=== PATIENT | male | born 1960 | race Caucasian/White ===

== ENCOUNTER → 2018-04-17 07:30 | Outpatient (CLI) | payer OTHER, SELFPAY ==
[2018-04-17 13:58] LABS: Free T4 (Free Thyroxine) 1.06 ng/dl (0.76-1.46); Thyroid Stimulating Hormone 2.88 uIU/ml (0.358-3.740); Triiodothryronine (T3) Uptake 35 % (31-39)
[2018-04-19 08:26] LABS: Thyroglobulin Level 1.8 IU/mL (0.0-0.9); Thyroid Peroxidase Antibodies 73 IU/mL (0-34)
== END ==
PROVIDERS: Visit Provider Physician Assistant
DX: R94.6 Abnormal results of thyroid function studies (principal)
CPT/HCPCS: 36415; 84439; 84443; 84479; 86376; 86800

== ENCOUNTER 2023-12-18 10:02 | Outpatient (CLI) | payer BC, SELFPAY ==
--- NOTE | 2023-12-18 10:08 | US_ITS ---
FINAL REPORT CLINICAL HISTORY: ABNORMAL THYROID FUNCTION STUDY COMPARISON: None FINDINGS: THYROID ULTRASOUND: The right lobe of the thyroid measures 3.8 x 1.4 x 1.5 cm in size. No focal nodules or masses are seen in the right lobe of the thyroid, although the gland is somewhat heterogeneous in texture. The left lobe of the thyroid measures 4 x 1.7 x 1.3 cm in size. No focal nodules or masses are seen in the left lobe of the thyroid, although the gland is somewhat heterogeneous in texture. The isthmus of the thyroid gland measures 4 mm in thickness. IMPRESSION: Heterogeneous thyroid gland without focal mass or nodule. Reviewed, Interpreted and Dictated by Reed Villarreal MD Transcribed by Sruthi Montes Authenticated and [facility]
== END 2023-12-18 23:59 | disposition home or self-care (01) ==
LOC: RAD 10:03
PROVIDERS: PCP Nurse Practitioner; Visit Provider Nurse Practitioner
DX: R94.6 Abnormal results of thyroid function studies (principal)
CPT/HCPCS: 76536

== ENCOUNTER 2024-12-02 18:30 | Emergency (ER) | payer BC, SELFPAY ==
[2024-12-02] VITALS (7 sets, daily range): BP systolic 134–164; BP diastolic 77–106; PULSE 87–112; RESP 16–24; TEMP 37.2–37.6; O2SAT 90–100; BMI 33.3
[2024-12-02 18:46] LABS: Coronavirus 19, PCR Not Detected (NotDetected); Influenza A, PCR Not Detected (NotDetected); Influenza B, PCR Not Detected (NotDetected)
--- NOTE | 2024-12-02 19:02 | XR_ITS ---
PROCEDURE INFORMATION: Exam: XR Chest Exam date and time: 12/02/2024 8:02 PM Age: 64 years old Clinical indication: Cough and shortness of breath; Additional info: Cough SOA TECHNIQUE: Imaging protocol: Radiologic exam of the chest. Views: 2 views. COMPARISON: No relevant prior studies available. FINDINGS: Lungs: Patchy right mid to lower lung zone opacity. Possible left lower lung zone opacity. Pleural spaces: Unremarkable. No pleural effusion. No pneumothorax. Heart/Mediastinum: Unremarkable. No cardiomegaly. Bones/joints: Unremarkable. IMPRESSION: Right mid to lower lung zone infiltration. Possible left lower lung zone infiltration.
--- NOTE | 2024-12-02 19:03 | ED_ITS ---
Discharge Plan Disposition Patient Disposition: Home, Self-Care Prescriptions Prescriptions: New doxycycline hyclate 100 mg capsule 100 mg PO BID 7 Days Qty: 14 0RF amoxicillin-pot clavulanate 875-125 mg tablet 1 tab PO BID Qty: 14 0RF albuterol sulfate 90 mcg/actuation HFA aerosol inhaler 3 inh inhalation Q3H PRN (Reason: shortness of breath or wheezing) Qty: 8.5 0RF Rx Instructions: until breathing returns to target peak flow/parameters Referrals Follow up/Referrals: Tabitha Peterson APRN [Primary Care Provider] - See instructions Activity Restrictions/Add. Instructions Additional Instructions/Restrictions: At this time it was felt you are safe to be discharged home. If new or worsening symptoms please do not hesitate to return the emergency department. Follow-up with your family doctor later this week to make sure things are headed in the right direction. Take your medications as prescribed and use your inhaler 3 puffs every 3 hours as needed for shortness of breath. If you are using it more than this come back for continued evaluation. Clinical Impressions Clinical Impression: Pneumonia Print Language Print Language: Zambian Discharge ED Provider: Oh Blankenship General Adult HPI General Chief complaint: Upper Respiratory Infection Stated complaint: Difficulty breathing,fever Time Seen by Provider: 12/02/24 18:33 Mode of Arrival: Ambulatory Source of Information: Patient Description of Symptoms (Recalled from ER Triage Doc. by RN): pt has increasing shortness of breath,fever since sunday. History of Present Illness HPI narrative: Patient is 64-year-old male previous smoker not current smoker history of hypertension presents emergency department for evaluation of shortness of breath and cough. Onset was acute, over the last 48 to 72 hours. His abdominal muscles are sore from coughing so much, no chest pain or abdominal pain at rest. No other acute complaints at this time. Related Data Previous Rx's ?Medication ?Instructions ?Recorded albuterol sulfate 90 mcg/actuation 3 inh inhalation Q3H PRN shortness 12/02/24 aerosol inhaler of breath or wheezing #8.5 grams amoxicillin 875 mg-potassium 1 tab PO BID pneumonia #14 tabs 12/02/24 clavulanate 125 mg tablet doxycycline hyclate 100 mg capsule 100 mg PO BID pneumonia 7 days #14 12/02/24 caps Allergies Allergy/AdvReac Type Severity Reaction Status Date / Time No Known Allergies Allergy Verified 12/02/24 18:41 [facility] Disclaimer: The information contained in this section may have been updated after the patient was seen, as this information can be updated by other users. Social History Smoking Status: Former smoker alcohol intake: never current occupational status: other Travel in the last 8 weeks: None ROS Obtained: Yes Systems reviewed as appropriate & no additional complaints except as documented Physical Exam General General appearance: alert and in no apparent distress Head Head exam: atraumatic and normocephalic Eye Eye exam: Present PERRL and EOMI ENT ENT exam: Present mucous membranes moist Neck Neck exam: Present normal inspection Chest Chest inspection: Present normal inspection and symmetric chest wall rise Respiratory Respiratory exam: Present wheezes (Scant wheezes bilateral lower lung matthews); Absent normal lung sounds bilaterally or respiratory distress Cardiovascular Cardiovascular exam: Present normal rhythm and tachycardia Abdominal Exam Abdominal exam: Present soft; Absent tenderness Extremities Exam Extremities exam: Present normal inspection Neurological Exam Neurological exam: Present alert Psychiatric Psychiatric exam: Present normal affect Skin Skin exam: Present warm and dry Medical Decision Making Medical Records Screening: Per USPSTF and CDC recommendations, given the prevalence of disease in our region, it is our hospital?s policy to screen for HIV and viral Hepatitis for all patients aged 18 and over and those with ongoing risk factors. Chip Inquiry Pt receiving controlled substance: No Vital Signs: 12/02/24 18:39 12/02/24 19:00 12/02/24 19:30 Temperature 99.6 F Temperature Source Oral Pulse Rate 100 H 101 H Pulse Rate [Right] 110 H Respiratory Rate 24 Blood Pressure 159/94 H Blood Pressure [Right Arm] 145/95 H Blood Pressure Mean [Right Arm] 111 02 Sat by Pulse Oximetry 94 L 92 L Oxygen Delivery Method Room Air Room Air 12/02/24 19:30 12/02/24 19:30 12/02/24 20:00 Temperature Temperature Source Pulse Rate 94 H 98 H 110 H Pulse Rate [Right] Respiratory Rate 18 Blood Pressure 136/77 134/77 Blood Pressure [Right Arm] Blood Pressure Mean [Right Arm] 02 Sat by Pulse Oximetry 100 92 L Oxygen Delivery Method Room Air Room Air 12/02/24 20:30 12/02/24 21:01 Temperature Temperature Source Pulse Rate 112 H 112 H Pulse Rate [Right] Respiratory Rate 16 24 Blood Pressure 157/96 H 164/106 H Blood Pressure [Right Arm] Blood Pressure Mean [Right Arm] 02 Sat by Pulse Oximetry 91 L 90 L Oxygen Delivery Method Room Air Room Air Lab Data Lab Results 12/02/24 18:41: SARS-CoV-2 (PCR) Not detected, Influenza A Untype (PCR) Not detected, Influenza Type B (PCR) Not detected 12/02/24 19:30: WBC 7.3, RBC 4.41 L, Hgb 13.3 L, Hct 39.0 L, MCV 88.4, MCH 30.2, MCHC 34.1, RDW 14.2, Plt Count 235, MPV 9.3, Neut % (Auto) 83.0 H, Lymph % (Auto) 8.6 L, [place] % (Auto) 7.8, Eos % (Auto) 0.0 L, Baso % (Auto) 0.3, Neut # (Auto) 6.1, Lymph # (Auto) 0.6 L, [place] # (Auto) 0.6, Eos # (Auto) 0.0, Baso # (Auto) 0.0, D-Dimer 0.59 H, Sodium 139, Potassium 3.5, Chloride 99, Carbon Dioxide 30, Anion Gap 13.5, BUN 14, Creatinine 1.20, Estimated Creat Clear 82, Estimated GFR 61, Est GFR ( Amer) 74, Glucose 107 H, Calcium 8.6, Total Bilirubin 0.6, AST 39, ALT 38, Alkaline Phosphatase 66, Troponin I < 0.01, NT-Pro-B Natriuret Pep 22.2, Total Protein 7.8, Albumin 4.3, Globulin 3.5 H, Albumin/Globulin Ratio 1.2 12/02/24 19:30 12/02/24 19:30 Orders (Tests/Meds): ED MEDICATIONS Discontinued Medications Generic Name Dose Route Start Last Admin Trade Name Freq PRN Reason Stop Dose Admin Albuterol/Ipratropium 6 ml 12/02/24 19:02 12/02/24 19:24 Ipratropium/Albuterol 3 Ml Neb IH 12/02/24 19:03 6 ml ONCE ONE Administration Amoxicillin/Clavulanate Potassium 1 each 12/02/24 20:31 12/02/24 20:42 Amoxicillin/Clavulanate Potassium 875/125mg Tablet PO 12/02/24 20:32 1 each ONCE ONE Administration Doxycycline Hyclate 100 mg 12/02/24 20:31 12/02/24 20:42 Doxycycline Hycl 100 Mg Tablet PO 12/02/24 20:32 100 mg ONCE ONE Administration Methylprednisolone Sodium Succinate 125 mg 12/02/24 19:02 12/02/24 19:20 Methylprednisolone Sod Succ 125mg Vial IV 12/02/24 19:03 125 mg ONCE ONE Administration ORDERS Category Date Time Status CXR 2 view (NOT portable) [XR chest 2V] Stat Exams 12/02/24 19:02 Completed BNP [NT Pro Brain Natriuretic Pep.] Stat Lab 12/02/24 19:30 Completed CBC w/Auto Diff [Complete Blood Count Auto Diff] Stat Lab 12/02/24 19:30 Completed CMP [Comprehensive Metabolic Panel] Stat Lab 12/02/24 19:30 Completed D-Dimer Stat Lab 12/02/24 19:30 Completed Rapid PCR Covid and Flu A/B Stat Lab 12/02/24 18:41 Completed Trop I [Troponin I] Stat Lab 12/02/24 19:30 Completed Troponin I Q3H Lab 12/02/24 22:15 Ordered Troponin I Q3H Lab 12/03/24 01:15 Ordered ECG Data Tracing #1: Independently inter by me rate is 107, rhythm is regular, axis is rightward deviated, no ST elevation in anatomical contiguous leads, QTc 406 Medical Decision Narrative: In summary patient is 64-year-old male past medical history described above who presents emergency department for evaluation of shortness of breath and cough. Patient is hemodynamically stable nontoxic-appearing on arrival, afebrile. Differential diagnosis includes pneumonia, viral respiratory infection, pulmonary embolism, among others. Workup will be conducted with hematologic labs chest x-ray, EKG, troponin, D-dimer. Initial inventions include DuoNebs x 2, methylprednisolone. Initial workup reviewed by me, hematologic labs are nonactionable no significant leukocytosis no anemia D-dimer 0.59 pulmonary embolism is excluded per years criteria initial troponin undetectably low and patient does not have chest pain no JOHN or critical electrolyte abnormality. Viral swab negative. Chest x-ray informally interpreted by me and consistent with pneumonia for which double coverage will be conducted with Augmentin and doxycycline. Upon repeat evaluation patient had significant improvement of respiratory symptoms had oxygen saturation that I would expect for someone who has multi pack-year smoking history and no significant respiratory distress. Largely clear to auscultation all lung matthews. Given this patient is appropriate for outpatient management at this time was given metered-dose inhaler prior to discharge will be discharged with a course of doxycycline Augmentin and steroids was given multiple return precautions verbalized understanding. Critical Care Critical Care Time Critical Care Time: No
--- NOTE | 2024-12-02 19:15 | ECG_ITS ---
APPROVED REPORT Exam: Resting ECG HR:107 bpm ECG Measurements Heart Rate [address] 149 P 63 QRSd 94 QRS 106 QT 343 T 52 QTc 406 Conclusion SINUS TACHYCARDIA RIGHT AXIS DEVIATION [QRS AXIS > 100] ABNORMAL ECG UNCONFIRMED REPORT Electronically signed by : HUGH OLIVERA, 12/04/2024 06:26:58
[2024-12-02] MEDS: METHYLPREDNISOLONE SOD SUCC 125MG VIAL 125 MG IV (19:20)
[2024-12-02] MEDS: IPRATROPIUM/ALBUTEROL 3 ML NEB 6 ML IH (19:24)
[2024-12-02 19:40] LABS: Basophils % 0.3 % (0.1-2.0); Hemoglobin 13.3 g/dL (14.1-18.0); Lymphocytes # 0.6 K/mm3 (0.7-4.5); Lymphocytes % 8.6 % (10-50); Mean Corpuscular HGB Conc 34.1 g/dL (31.8-35.4); Mean Corpuscular Hemoglobin 30.2 pg (27.0-31.2); Mean Corpuscular Volume 88.4 fl (80-94); Mean Platelet Volume 9.3 fl (7.4-10.4); Monocytes # 0.6 K/mm3 (0.1-1.0); Monocytes % 7.8 % (1.7-9.3); Neutrophils # 6.1 K/mm3 (1.8-7.8); Platelet Count 235 K/mm3 (142-424); Red Blood Count 4.41 M/mm3 (4.60-6.20); Red Cell Distribution Width 14.2 % (11.5-17.5); White Blood Count 7.3 K/mm3 (4.8-10.8)
[2024-12-02 19:54] LABS: Alanine Aminotransferase 38 U/L (12-78); Albumin Level 4.3 g/dl (3.5-5.0); Albumin/Globulin Ratio 1.2 (1.1-1.8); Alkaline Phosphatase 66 U/L (38-126); Aspartate Amino Transferase 39 U/L (17-59); Bilirubin,Total 0.6 mg/dl (0.2-1.3); Blood Urea Nitrogen 14 mg/dl (9-20); Calcium 8.6 mg/dl (8.4-10.2); Carbon Dioxide 30 mmol/L (22.0-30.0); Chloride 99 mmol/L (98-107); Creatinine Clearance Estimated 82 mL/min (50-200); Estimated Glomerular Filt Rate 61 ml/min (>60); GFR (African American) 74 ML/MIN (>60); Globulin 3.5 g/dL (1.3-3.2); Glucose 107 mg/dl (74-100); Potassium 3.5 mmoL/L (3.5-5.1); Total Protein,Serum 7.8 g/dl (6.3-8.2)
[2024-12-02 19:58] LABS: D-Dimer 0.59 ug/mL (0.0-0.5)
[2024-12-02 20:04] LABS: NT Pro Brain Natriuretic Pep. 22.2 pg/mL (0-125)
[2024-12-02 20:07] LABS: Anion Gap 13.5 mEq/L (5-15); Sodium 139 mmol/L (136-145)
[2024-12-02 20:08] LABS: Troponin I < 0.01 ng/ml (0.00-0.034)
[2024-12-02] MEDS: DOXYCYCLINE HYCL 100 MG TABLET PO (20:42)
[2024-12-02] MEDS: AMOXICILLIN/CLAVULANATE POTASSIUM 875/125MG TABLET 1 EACH PO (20:42)
[2024-12-02] MEDS: AEROCHAMBER/OPTIHALER 1 UNIT MC (22:07)
[2024-12-02] MEDS: ALBUTEROL-HFA 90MCG/PUFF INHALER 8GM 3 PUFF IH (22:07)
--- OUTSIDE RECORDS SUMMARY | 2024-12-04 21:40 | XMS_ITS | Data Portability ---
Author Organization [facility] KHADIJAH Reis ROMANCE CLOSED Address [address] [place] [address] Assessment No assessment recorded. Plan of Treatment Reminders Order Date Submit Date Provider Last Modified By Organization Details Last Modified Time Details Appointments RECHECK 2024 08:00A Chloe VALDIVIA MD Not available Not available Not available Lab TSH, serum or plasma 2023 024 [facility], [address] [place] [address], [phone], 03/03/2024 09:28:28 T4, free, serum 2023 024 [facility], [address] [place] [address], [phone], 03/03/2024 09:28:25 thyroid peroxidas e (tpo) Ab, serum 2023 024 [facility], [address] [place] [address], [phone], 02/01/2024 17:08:34 Referral None recorded. Procedures None recorded. Surgeries None recorded. Imaging None recorded. Medication Orders levothyro xine 75 mcg tablet [address] [id number], [address] [place], [id number], 01/31/2024 09:53:42 Patient TargetsNo targets recorded. Patient InstructionsNo instructions recorded. Reason for Referral None Reported. Results Created Date Observation Date Name Description Value Unit Range Abnormal Flag Note LastModifiedBy Organization Detail LastModifiedTime 01/31/20 24 02/01/2024 THYRO ID PEROX IDASE AB thyroid peroxidase Ab 310 IU/mL <9 high Not Available [facility] [address] [place] [address], [phone], 02/01/2024 17:08:34 03/03/20 24 03/03/2024 T4,FR EE T4,free 1.44 NG/dL 0.93-1 .70 normal Not Available [facility] [address] [place], [phone], 03/03/2024 09:28:25 03/03/20 24 03/03/2024 TSH TSH 3.770 u[IU] /mL 0.270- 4.200 normal Not Available [facility] [address] [place], [phone], 03/03/2024 09:28:28 Result Notes None recorded. Medical Equipment None Reported. Allergies No known drug allergies Medications Name Sig Start Date Stop Date Status Note LastModified by Organization Details LastModified Time fluoxetine 40 mg capsule Take 1 capsule every day by oral route. active Not Available Not Available No t Available trazodone 50 mg tablet Take 1 tablet every day by oral route. active Not Available Not Available No t Available amlodipine 5 mg tablet Take 1 tablet every day by oral route. active Not Available Not Available No t Available levothyroxin e 75 mcg tablet Take 1 tablet every day by oral route in the morning for 90 days. 2023 active Not Available Not Available Not Avai lable montelukast 10 mg tablet Take 1 tablet every day by oral route. active Not Available Not Available No t Available azelastine 137 mcg (0.1 %) nasal spray [place] 2 sprays twice a day by intranasal route. active Not Available Not Available No t Available buspirone 15 mg tablet Take 1 tablet twice a day by oral route. active Not Available Not Available No t Available Xyzal 5 mg tablet Take 1 tablet every day by oral route. active Not Available Not Available No t Available Vitals Date Recorded Body weight Body mass index (BMI) Body height Heart rate Systolic blood pressure Diastolic blood pressure Provider Name and Address Organization Details Last Updated DateTime 4 58603.4 g 30.5 kg/m2 165.1 cm 80 /min 124 mm[Hg] 78 mm[Hg] [facility] 4 08:49:54 Date Recorded Body height Body mass index (BMI) Body weight Heart rate Systolic blood pressure Diastolic blood pressure Provider Name and Address Organization Details Last Updated DateTime 4 165.1 cm 33.8 kg/m2 82785.2 5 g 74 /min 122 mm[Hg] 72 mm[Hg] [facility] 4 07:54:44 Social History None recorded. Functional Status None recorded. Mental Status None recorded. Family History Nothing Reported. Medical History No medical history recorded. Past Encounters Encounter ID Performer Location Encounter Start Date Encounter Closed Date Diagnosis/Indication Diagnosis SNOMED-CT Code Diagnosis ICD10 Code Diagnosis Note [id number] AURELIO VALDIVIA MD [facility] [address] [place] [address] 01/31/2024 08:13:45 01/31/2024 10:17:27 Subclinical hypothyroidism 38609913 E02 New consultati on thyroid evaluation Symptoms consistent with hypothyroi dism Thyroid ultrasound on 12/18/2023 showed heterogene ous thyroid gland without focal masses.TSH of 7.57 and free T4 of 1.0 on 10/23/2023T SH of 12.47 and free T4 of 1.0 on 07/24/2023 Bedside ultrasound showed enlarged heterogene ous thyroid parenchyma without any distinct nodularity The above is consistent with subclinica l hypothyroi dism. We had a discussion about hypothyroi dism pathophysi ology i.e. Seth thyroiditi s, manifestat ions, diagnostic workup thyroid hormone replacemen t therapy benefits and side effects. Seth thyroiditis 21 [id number] E06.3 Recommenda tions: Start levothyrox ine 75 mcg every a.m. Patient was instructed on the appropriat e method of levothyrox in administra tion to be taken every a.m. on an empty stomach as new food, drinks or other medication s for at least 30 minutes. PPI and calcium -containin g preparatio ns is preferred to be given at least of her hours before or after levothyrox in therapy. TPO antibody today TSH and free T4 for next visit after 6 to 8 weeks Patient verbalized understand ing and agreed with the above mentioned plan of care. I would like to thank Tabitha Peterson APRN for the opportunit y to participat e in the care of this patient. [id number] AURELIO VALDIVIA MD [facility] [address] [place] [address] 03/03/2024 07:46:53 03/03/2024 08:18:50 Subclinical hypothyroidism 97331654 E02 TPO antibody is positive at 300Thyroid ultrasound on 12/18/2023 showed heterogene ous thyroid gland without focal masses.TSH of 7.57 and free T4 of 1.0 on 10/23/2023T SH of 12.47 and free T4 of 1.0 on 07/24/2023 Bedside ultrasound last office visit showed enlarged heterogene ous thyroid parenchyma without any distinct nodularity The above is consistent with subclinica l hypothyroi dism.We had a rediscussi on about hypothyroi dism pathophysi ology i.e. Seth thyroiditi s, manifestat ions, diagnostic workup thyroid hormone replacemen t therapy benefits and side effects. Seth thyroiditis 21 [id number] E06.3 Clinically he denies any improved hypothyroi dism andContinu e current levothyrox ine 75 mcg every a.m.Jaylyn t was instructed on the appropriat e method of levothyrox in administra tion to be taken every a.m. on an empty stomach as new food, drinks or other medication s for at least 30 minutes. PPI and calcium -containin g preparatio ns is preferred to be given at least of her hours before or after levothyrox in therapy. TPO antibody todayTSH and free [id number] adjustment of levothyrox ine therapy as appropriat e to keep levels within normal range.Karla ent verbalized understand ing and agreed with the above mentioned plan of care. Health Concerns Section Related Observation LastModified by Organization Detai ls LastModified Time None Recorded Concern Status LastModified by Organization Details LastModified Time None Recorded Advance Directives Directive None Recorded Payers Encounter Date Sequence Insurance Name Policy Number Policy Lopez Covered Member ID Lopez Member ID Guarantor Name 01/31/2024 1 [employer]: MARCI[employer] [place] [employer] [place] [id number] Zeb [id number] Zeb Marshall 03/03/2024 1 STEPHANIE: [employer] [place] [employer] [place] [id number] Zeb Marshall [id number] Zeb Marshall Notes Date Note Type Note Provider Name and Address Organization Details Recorded Time 01/31/2024 text/html 63-year-old Cauc male patient with a past medical history as detailed in the problem list significant for hypertension and therapy seen today for thyroid evaluation. Requesting provider Tabitha Peterson, APRNReported having abnormal thyroid blood work and consequently he had thyroid ultrasound reported enlarged abnormal thyroid. He denies any family history of thyroid disease but he has 2 daughters with systemic lupus Personally has vitiligoFatigue and lack of energy and weight gain He denies any dry skin or hair loss or leg cramping No medications known to affect thyroid function test Thyroid ultrasound on 12/18/2023 showed heterogeneous thyroid gland without focal masses.TSH of 7.57 and free T4 of 1.0 on 10/23/2023TSH of 12.47 and free T4 of 1.0 on 07/24/2023 AURELIO VALDIVIA MD [address] [place] [address], [phone], [facility] 01/31/2024 09:54:18 03/03/2024 text/html 63-year-old Cauc male patient with a past medical history as detailed in the problem list significant for hypertension on therapy seen today for a follow-up visit hypothyroidism on thyroid hormone replacement therapy Initially seen on 01/31/2024 seen today for thyroid evaluation.Requesting provider Tabitha Peterson, APRNReported having abnormal thyroid blood work and consequently he had thyroid ultrasound reported enlarged abnormal thyroid.He denies any family history of thyroid disease but he has 2 daughters with systemic lupusPersonally has vitiligoFatigue and lack of energy and weight gainHe denies any dry skin or hair loss or leg crampingNo medications known to affect thyroid function testThyroid ultrasound on 12/18/2023 showed heterogeneous thyroid gland without focal masses.TSH of 7.57 and free T4 of 1.0 on 10/23/2023TSH of 12.47 and free T4 of 1.0 on 07/24/2023Interval history: Started on levothyroxine 75 mcg every a.m. He is still complaining of fatigue and weight gain He denies any palpitations, shaking, excessive sweating or heat intolerance AURELIO VALDIVIA MD [address] [place] [address], [phone], [facility] 03/03/2024 08:06:25
== END 2024-12-02 22:31 | disposition home or self-care (01) ==
PROVIDERS: Emergency Provider Emergency Medicine; PCP Nurse Practitioner
DX: J18.9 Pneumonia, unspecified organism (principal); R06.02 Shortness of breath; R50.9 Fever, unspecified; R05.9 Cough, unspecified
CPT/HCPCS: 71046; 80053; 83880; 84484; 85025; 85378; 87636; 93005; 96374; 99284; J2919; J7620